=== PATIENT | male | born 1995 | race African-American/Black ===

== ENCOUNTER 2020-01-15 20:47 | Emergency (ER) | payer MEDICAID, OTHER ==
[~2020-01-15] VITALS: Ht 182.9 cm; Wt 123.0 kg
--- NOTE | 2020-01-15 21:06 | NUR ---
THIS IS A 24 YO M BIB EMS AFTER BEING RELEASED FROM [facility] W/ C/O COUGH X2 DAYS, SOB AFTER COUGHING ONLY AND CP "FOR YEARS". PT STATES "I'VE HAD A BUNCH OF EKGS AND THEY ARE ALWAYS NEGATIVE". PT DENIES RECENT TRAVEL HX, AFEBRILE, ALL VS WDL. NADN. PT IS RESTING ON [employer] W/ CALL LIGHT IN REACH. AWAITING ED EVAL.
--- NOTE | 2020-01-15 21:18 | NUR ---
LAB IN ROOM.
--- NOTE | 2020-01-15 21:26 | NUR ---
PT TO RAD.
[2020-01-15 21:30] LABS: BASOPHILS # (AUTO) 0.04 x10^3/uL (0-0.1); BASOPHILS % (AUTO) 0 % (0-1); EOSINOPHILS # (AUTO) 0.23 x10^3/uL (0-0.4); EOSINOPHILS % (AUTO) 2 % (1-7); LYMPHOCYTES # (AUTO) 1.44 x10^3/uL (1-3.4); LYMPHOCYTES % (AUTO) 12 % (22-44); MD NO; MEAN CORPUSCULAR HEMOGLOBIN 27.7 pg (27.5-34.5); MEAN CORPUSCULAR HGB CONC 32.8 g/dL (33.2-36.2); MEAN CORPUSCULAR VOLUME 84.7 fL (81-97); MEAN PLATELET VOLUME 8.2 fL (7.4-10.4); MONOCYTES # (AUTO) 1.04 x10^3/uL (0.2-0.8); MONOCYTES % (AUTO) 9 % (2-9); NEUTROPHILS # (AUTO) 9.43 x10^3/uL (1.8-6.8); NEUTROPHILS % (AUTO) 77 % (42-75); PLATELET COUNT 354 x10^3/uL (130-400); RED BLOOD COUNT 4.85 x10^6/uL (4.38-5.82); RED CELL DISTRIBUTION WIDTH 15.3 % (9.4-14.8)
[2020-01-15 21:43] LABS: ALBUMIN 3.3 g/dL (3.4-5.0); ANION GAP 6 mmol/L (5-15); CALCIUM 8.7 mg/dL (8.5-10.1); CHLORIDE 108 mmol/L (98-107); CREATININE 0.82 mg/dL (0.7-1.3)
[2020-01-15 21:47] LABS: TROPONIN I < 0.015 ng/mL (0.000-0.045)
[2020-01-15 22:44] VITALS: BP 150/86
--- NOTE | 2020-01-15 22:45 | NUR ---
Mechelle RN: Discharge instructions given. All questions and concerns addressed. Patient ambulatory with a stead gait. Belongings with patient.
== END 2020-01-15 22:46 | disposition home or self-care (01) ==
LOC: ED 22:30
DX: R07.89 Other chest pain (principal); R05 Cough; F12.10 Cannabis abuse, uncomplicated; F17.210 Nicotine dependence, cigarettes, uncomplicated; Z72.9 Problem related to lifestyle, unspecified
CPT/HCPCS: 36415; 71046; 80048; 82040; 84484; 85025; 93005; 99285